=== PATIENT | male | born 1965 | race Caucasian/White ===

== ENCOUNTER 2020-02-15 22:08 | Emergency (ER) | payer BC, SELFPAY ==
[2020-02-15 22:10] VITALS: BP 170/93; PULSE 88; RESP 15; TEMP 37; O2SAT 100
--- NOTE | 2020-02-15 22:34 | ED.ABDPAIN ---
HPI - Abdominal Pain General Chief Complaint: Abdominal Pain Stated Complaint: pain in side/abd Time Seen by Provider: 02/15/20 22:34 History of Present Illness HPI narrative: 54-year-old male patient is here with chief complaints of left lower abdominal pain. Patient states that he did some heavy lifting a few days ago and then this morning when he woke up he felt a pulling type of sensation in the left lower abdomen. He denies any associated nausea vomiting or diarrhea. He denies any change in his appetite. He denies any fever or chills. Patient denies any urinary symptoms. Patient states that he is concerned about a hernia although he has no pain or swelling noted to the groin or testicles or the umbilical area. Patient denies any prior medical problems and states that he is not on any routine medications. Related Data Home Medications Medication Instructions Recorded Confirmed No Home Medications 02/15/20 02/15/20 Allergies Allergy/AdvReac Type Severity Reaction Status Date / Time No Known Allergies Allergy Verified 02/15/20 22:19 Review of Systems Review of Systems: All systems reviewed & are unremarkable except as noted in HPI and below PMFSH Past Medical History Medical History (Updated 02/15/20 @ 23:30 by Johana James MD) No pertinent past medical history Surgical History Surgical History No pertinent past surgical history Social History Social History (Updated 02/15/20 @ 23:25 by Johana James MD) Smoking status: Current every day smoker Exam Const: General: healthy appearing, no acute distress and alert Nutritional Appearance: well nourished Orientation/consciousness: patient oriented x3 HENMT: Head: normal to inspection Face and sinus: normal facial exam Mouth: Yes moist mucous membranes Eyes: Conjunctivae: conjunctivae normal Pupils: Equal, round and reactive pupils present EOM: EOMs intact bilaterally Neck: Neck: normal visual inspection Chest: Chest palpation & inspection: normal inspection of the chest and no tenderness Resp: Effort & Inspection: normal respiratory effort Auscultation: clear to auscultation bilaterally Cardio: Rate: regular rate Rhythm: regular rhythm Heart sounds: no murmurs GI: GI Palp: Yes Soft to palpation, Yes Tenderness to palpation present (GI) (Minimal tenderness LLQ, mostly extra abdominal ), No Guarding due to palpation present (GI), No Rigid due to palpation, No Hernia present, No Palpable mass present and No Rebound tenderness present Auscultation: normal bowel sounds : General: Yes no CVA tenderness Testes: Testes normal Back/Spine/Pelvis: Back: no CVA tenderness Skin: General skin exam: normal color Rashes: no rashes Neuro: General: patient oriented x3, moves all extremities and CN's II-XI intact bilaterally Speech: normal speech Gait exam (Neuro): Normal gait present Extrem: General: normal to inspection Psych: Mental Status: mental status grossly normal Thought content: Yes Normal thought content present Course Course Emergency Course: The patient is aware of normal labs and urinalysis. He has been given pain control with ketorolac 60 mg intramuscularly. He is advised to follow-up with his primary care physician. He has been reassured about the diagnosis of muscular pain in his abdominal wall. Vital Signs Vital signs: Vital Signs Temperature 37.0 C 02/15/20 22:10 Pulse Rate 88 02/15/20 22:10 Respiratory Rate 15 02/15/20 22:10 Blood Pressure 170/93 H 02/15/20 22:10 Pulse Oximetry 100 02/15/20 22:10 Temperature 37.0 C 02/15/20 22:10 Pulse Rate 88 02/15/20 22:10 Respiratory Rate 15 02/15/20 22:10 Blood Pressure 170/93 H 02/15/20 22:10 Pulse Oximetry 100 02/15/20 22:10 MDM - Abdominal Pain Lab Data Result diagrams: 02/15/20 22:31 02/15/20 22:31 Labs: Lab Results 02/15/20 02/15/20 02/15/20 R
[2020-02-15 22:36] LABS: Basophils Absolute Auto 0.04 K/mm3 (0.00-0.10); Basophils Percent Auto 0.9 % (0.0-1.0); Eosinophils Absolute Auto 0.18 K/mm3 (0.02-0.50); Eosinophils Percent Auto 3.9 % (1.0-6.0); Hematocrit 39.1 % (40.0-54.0); Hemoglobin 13.2 g/dL (14.0-18.0); Immature Granulocyte Absolute 0.01 K/mm3 (0.00-0.00); Immature Granulocyte Percent A 0.2 % (0.0-0.0); Lymphocytes Absolute Auto 1.22 K/mm3 (1.10-4.50); Lymphocytes Percent Auto 26.5 % (18.0-42.0); Mean Corpuscular HGB Conc 33.8 g/dL (32.0-36.0); Mean Corpuscular Hemoglobin 31.4 pg (27.0-31.0); Mean Corpuscular Volume 92.9 fL (78.0-102.0); Mean Platelet Volume 8.7 fl (8.7-11.0); Monocytes Absolute Auto 0.44 K/mm3 (0.10-0.90); Monocytes Percent Auto 9.6 % (2.0-11.0); Neutrophils Absolute Auto 2.7 K/mm3 (1.7-7.2); Neutrophils Percent Auto 58.9 % (50.0-70.0); Platelet Count Result 264 K/mm3 (150-420); Red Blood Count 4.21 M/mm3 (4.70-6.10); Red Cell Distribution Width 12.7 % (11.6-14.4); White Blood Count 4.6 K/mm3 (4.8-10.8)
[2020-02-15 22:37] LABS: Add Urine Microscopic? NO; Appearance Urine Clear (Clear); Bilirubin Urine Negative (Negative); Blood Urine Negative (Negative); Color Urine Yellow (Yellow); Glucose Urine UA Negative (Negative); Ketones Urine Negative (Negative); Leukocyte Esterase Ur Negative LEU/UL (Negative); Nitrate Urine Negative (Negative); Protein Urine Negative (Negative); Specific Grav Ur 1.025 (1.010-1.020); Urobilinogen Urine 0.2 mg/dL (0.2-1.0)
[2020-02-15 22:53] LABS: Alanine Aminotransferase 24 U/L (16-63); Albumin Level 3.6 g/dL (3.4-5.0); Alkaline Phosphatase 91 U/L (46-116); Anion Gap 7 mmol/L (8-16); Aspartate Amino Transferase 22 U/L (15-37); Bilirubin,Total 0.2 mg/dL (0.00-1.00); Blood Urea Nitrogen 14 mg/dL (7-18); Calcium 8.2 mg/dL (8.5-10.1); Carbon Dioxide 27 mmol/L (21-32); Chloride 104 mmol/L (98-108); Estimated Glomerular Filt Rate > 60; Glucose 125 mg/dL (70-99); Lipase 144 U/L (73-393); Osmolality Calculated 287 mOsm/kg (285-295); Potassium 3.9 mmol/L (3.5-5.1); Sodium 138 mmol/L (136-145)
[2020-02-15] MEDS: KETOROLAC (*BKC) 60 MG/2 ML VIAL IM (23:20)
[2020-02-15 23:47] VITALS: BP 167/83; PULSE 79; RESP 20; O2SAT 98
== END 2020-02-15 23:49 | disposition home or self-care (01) ==
PROVIDERS: Emergency Provider Emergency Medicine
DX: R10.32 Left lower quadrant pain (principal)
CPT/HCPCS: 36415; 80053; 81003; 83690; 85025; 96372; 99283; J1885

== ENCOUNTER 2020-02-27 21:47 | Emergency (ER) | payer BC, SELFPAY ==
[2020-02-27 22:03] VITALS: BP 162/97; PULSE 77; RESP 16; TEMP 37.1; O2SAT 97
--- NOTE | 2020-02-27 22:10 | ED.SKABFB ---
HPI - Skin/Abscess/Foreign Bdy General Chief complaint: Skin/Abscess/Foreign Body Stated complaint: rash Source: patient History of Present Illness HPI narrative: this is a 55-year-old gentleman that presents with a rash and pain located in his left lower abdomen has some vesicular rash on erythematous base started a couple days ago and has gotten worse over last 24 hours with no fever chills no nausea vomiting no diarrhea constipation no shortness of breath no cough congestion. complaint: rash Onset (ago): day(s) Tetanus up to date: unsure Location: generalized ( Left lower abdomen) Severity: mild Severity scale (1-10): 4 Quality: burning and aching Pain Consistency: constant Relieving factors: none Exacerbating factors: none Associated symptoms: denies other symptoms Related Data Allergies Allergy/AdvReac Type Severity Reaction Status Date / Time No Known Allergies Allergy Verified 02/15/20 22:19 Review of Systems Review of Systems: All systems reviewed & are unremarkable except as noted in HPI and below PMFSH Past Medical History Medical History No pertinent past medical history Surgical History Surgical History No pertinent past surgical history Social History Social History Smoking status: Current every day smoker Exam Const: General: no acute distress and alert Orientation/consciousness: patient oriented x3 HENMT: Head: normal to inspection Eyes: Conjunctivae: conjunctivae normal Pupils: Equal, round and reactive pupils present EOM: EOMs intact bilaterally Neck: Neck: normal visual inspection, no lymphadenopathy and no meningeal signs Chest: Chest palpation & inspection: normal inspection of the chest Resp: Effort & Inspection: normal respiratory effort Auscultation: clear to auscultation bilaterally Cardio: Rate: regular rate Rhythm: regular rhythm GI: GI Palp: Yes Soft to palpation : Testes: Testes normal Back/Spine/Pelvis: Back: no CVA tenderness Skin: Other: A cluster of vesicles on erythematous base located in his left lower abdomen Course Course Emergency Course: administered dose of acyclovir, and 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 Vital Signs Vital signs: Vital Signs Temperature 37.1 C 02/27/20 22:03 Pulse Rate 77 02/27/20 22:03 Respiratory Rate 16 02/27/20 22:03 Blood Pressure 162/97 H 02/27/20 22:03 Pulse Oximetry 97 02/27/20 22:03 Temperature 37.1 C 02/27/20 22:03 Pulse Rate 77 02/27/20 22:03 Respiratory Rate 16 02/27/20 22:03 Blood Pressure 162/97 H 02/27/20 22:03 Pulse Oximetry 97 02/27/20 22:03 Critical Care Time Critical Care Time Critical Care Time: No Discharge Plan Discharge Clinical Impression: Herpes zoster Qualifiers: Herpes zoster complications: without complications Qualified Code(s): B02.9 - Zoster without complications Patient Disposition: Home, Self-Care Condition: Stable Instructions: Antibiotic Form, Shingles (ED) Additional Instructions: take medicine as prescribed, can use Motrin or Tylenol as needed for pain. Prescriptions: New acyclovir 800 mg tablet 800 mg PO TID 7 Days Qty: 21 RF: 0 Follow-up/Referrals: Luis Padilla MD [Primary Care Provider] - Time of Disposition: 22:15
[2020-02-27] MEDS: ACYCLOVIR 200 MG CAPSULE 400 MG PO (22:25)
== END 2020-02-27 22:35 | disposition home or self-care (01) ==
PROVIDERS: Emergency Provider Emergency Medicine; PCP Internal Medicine
DX: B02.9 Zoster without complications (principal)
CPT/HCPCS: 99283; A9270

== ENCOUNTER 2020-04-19 13:13 | Emergency (ER) | payer BC, SELFPAY ==
--- NOTE | ~2020-04-19 | XR_ITS ---
EXAMINATION: XR ribs RT 2V EXAM DATE: 04/19/2020 14:23 INDICATION: Right lower rib pain posteriorly. TECHNIQUE: Frontal projection of the upper right ribs, frontal projection of the lower right ribs, ob lique projection of the right ribs, without chest x-ray(s) for interpretation. Correlation is made to Chest x-ray 05/01/2012 FINDINGS: There are no displaced acute right rib fractures identified. There are no osteoblastic or osteolytic lesions identified. There is no soft tissue abnormality seen. Thoracolumbar fusion poste riorly. IMPRESSION: Unremarkable right rib exam. Reviewed, dictated and finalized at location A. ON PICTURE ACTOR
--- NOTE | 2020-04-19 13:27 | ED.GENADULT ---
HPI - General Adult General Chief complaint: Back Pain/Injury Stated complaint: rib pain and comes around to back Time Seen by Provider: 04/19/20 13:28 Source: patient and RN notes reviewed Mode of arrival: ambulatory Limitations: no limitations History of Present Illness HPI narrative: patient has a history of shingles last month. This morning woke up with severe pain in his right ribs. No injury that he recalls. Hurts when he takes a deep breath. Also hurts when he touches it Or moves the wrong way. complaint: Right rib pain Onset (ago): hour(s) (6) Location: chest Radiation: non-radiation Severity: severe Quality: aching, dull and constant Pain Consistency: intermittent Relieving factors: none Exacerbating factors: movement Associated symptoms: denies other symptoms Treatments prior to arrival: none Related Data Allergies Allergy/AdvReac Type Severity Reaction Status Date / Time No Known Allergies Allergy Verified 02/15/20 22:19 Review of Systems Review of Systems: All systems reviewed & are unremarkable except as noted in HPI and below PMFSH Past Medical History Medical History No pertinent past medical history Surgical History Surgical History No pertinent past surgical history Social History Social History Smoking status: Current every day smoker Exam Const: General: healthy appearing and no acute distress Nutritional Appearance: well nourished and thin Orientation/consciousness: patient oriented x3 HENMT: Head: normal to inspection Ears: external ears normal Eyes: Conjunctivae: conjunctivae normal Pupils: Equal, round and reactive pupils present EOM: EOMs intact bilaterally Neck: Neck: normal visual inspection Chest: Chest palpation & inspection: tenderness costal cartilage posterior-axillary line involving the 7th-8th rib, involving the 8th-9th rib, involving the 9th-10th rib and involving the 10th-11th rib Resp: Effort & Inspection: normal respiratory effort Auscultation: clear to auscultation bilaterally Other: pain with deep breaths Cardio: Rate: regular rate Rhythm: regular rhythm GI: GI Palp: Yes Soft to palpation Auscultation: normal bowel sounds Back/Spine/Pelvis: Cervical Spine: cervical ROM normal Thoracic/Lumbar Spine: thoraco-lumbar ROM normal Skin: General skin exam: normal color Rashes: no rashes Neuro: General: patient oriented x3, moves all extremities and no focal motor deficits Speech: normal speech Gait exam (Neuro): Normal gait present Extrem: General: normal to inspection and no clubbing, cyanosis or edema Psych: Appearance: grossly normal and well kempt Mental Status: mental status grossly normal Affect: normal affect Attitude: cooperative Thought content: Yes Normal thought content present Course Vital Signs Vital signs: Vital Signs Temperature 36.9 C 04/19/20 13:35 Pulse Rate 84 04/19/20 13:35 Respiratory Rate 16 04/19/20 13:35 Blood Pressure 145/90 H 04/19/20 13:35 Pulse Oximetry 95 04/19/20 13:35 Temperature 36.9 C 04/19/20 13:35 Pulse Rate 84 04/19/20 13:35 Respiratory Rate 16 04/19/20 13:35 Blood Pressure 145/90 H 04/19/20 13:35 Pulse Oximetry 95 04/19/20 13:35 Medical Decision Making Vital Signs Vital Signs: Vital Signs Temperature 36.9 C 04/19/20 13:35 Pulse Rate 84 04/19/20 13:35 Respiratory Rate 16 04/19/20 13:35 Blood Pressure 145/90 H 04/19/20 13:35 Pulse Oximetry 95 04/19/20 13:35 Temperature 36.9 C 04/19/20 13:35 Pulse Rate 84 04/19/20 13:35 Respiratory Rate 16 04/19/20 13:35 Blood Pressure 145/90 H 04/19/20 13:35 Pulse Oximetry 95 04/19/20 13:35 Discharge Plan Discharge Clinical Impression: Rib sprain Qualifiers: Encounter type: initial encounter Qualified Code(s): S23.41XA - Sprain
[2020-04-19 13:35] VITALS: BP 145/90; PULSE 84; RESP 16; TEMP 36.9; O2SAT 95
[2020-04-19] MEDS: KETOROLAC (*BKC) 60 MG/2 ML VIAL IM (14:10)
== END 2020-04-19 14:55 | disposition home or self-care (01) ==
PROVIDERS: Emergency Provider Emergency Medicine
DX: S23.41XA Sprain of ribs, initial encounter (principal)
CPT/HCPCS: 71100; 96372; 99283; J1885

== ENCOUNTER 2021-02-23 10:55 | Emergency (ER) | payer BC, SELFPAY ==
[2021-02-23 11:19] VITALS: BP 147/100; PULSE 86; RESP 19; TEMP 36.4; O2SAT 95
--- NOTE | 2021-02-23 11:30 | ED.BACK ---
HPI - Back Pain/Injury General Chief Complaint: Back Pain/Injury Stated Complaint: Lower back pain for last 3 days Source: patient Mode of arrival: ambulatory Limitations: no limitations History of Present Illness HPI Narrative: this is a 56-year-old gentleman that presents with a right lower back pain has chronic back pain and strained his back with some heavy lifting causing aching and spasm in the right L4 paravertebral area with no radiation of his pain no saddle paresthesias no fever chills, rates his pain about 8/10 worse with movement and improved with rest. MD elicited complaint: back pain Pertinent past history: prior back pain Onset (ago): day(s) Timing: constant Severity: moderate Pain scale (0-10): 8 Quality: aching and spasming Location: lumbar spine Exacerbating factors: movement Relieving factors: immobilization Related Data Allergies Allergy/AdvReac Type Severity Reaction Status Date / Time No Known Allergies Allergy Verified 02/23/21 11:18 Review of Systems Review of Systems: All systems reviewed & are unremarkable except as noted in HPI and below PMFSH Past Medical History Medical History No pertinent past medical history Surgical History Surgical History No pertinent past surgical history Social History Social History Smoking status: Current every day smoker Exam Const: General: no acute distress and alert Orientation/consciousness: patient oriented x3 HENMT: Head: normal to inspection Eyes: Conjunctivae: conjunctivae normal Pupils: Equal, round and reactive pupils present Chest: Chest palpation & inspection: normal inspection of the chest Resp: Effort & Inspection: normal respiratory effort Auscultation: clear to auscultation bilaterally Cardio: Rate: regular rate Rhythm: regular rhythm GI: Inspection: distended : Testes: Testes normal Urinary Catheter: Urinary Catheter: patent and draining Back/Spine/Pelvis: Back: no CVA tenderness Skin: General skin exam: normal color Rashes: no rashes Neuro: Other: L4 right paravertebral tenderness with palpation with a negative straight leg raising test Extrem: General: normal to inspection and no pedal edema Psych: Mental Status: mental status grossly normal Course Course Emergency Course: patient received IM Toradol and IM muscle relaxant Vital Signs Vital signs: Vital Signs Temperature 36.4 C L 02/23/21 11:19 Pulse Rate 86 02/23/21 11:19 Respiratory Rate 19 02/23/21 11:19 Blood Pressure 147/100 H 02/23/21 11:19 Pulse Oximetry 95 02/23/21 11:19 Temperature 36.4 C L 02/23/21 11:19 Pulse Rate 86 02/23/21 11:19 Respiratory Rate 19 02/23/21 11:19 Blood Pressure 147/100 H 02/23/21 11:19 Pulse Oximetry 95 02/23/21 11:19 Critical Care Time Critical Care Time Critical Care Time: No Discharge Plan Discharge Clinical Impression: Strain of lumbar region Qualifiers: Encounter type: initial encounter Qualified Code(s): S39.012A - Strain of muscle, fascia and tendon of lower back, initial encounter Patient Disposition: Home, Self-Care Condition: Stable Instructions: Antibiotic Form, Acute Low Back Pain (ED) Additional Instructions: take medicine as prescribed follow-up primary care physician if symptoms persist or worsen. Prescriptions: New tramadol [Ultram] 50 mg tablet 50 mg PO Q6H PRN (Reason: pain) Qty: 14 RF: 0 cyclobenzaprine 10 mg tablet 10 mg PO TID Qty: 20 RF: 0 Follow-up/Referrals: Luis Padilla MD [Primary Care Provider] - Time of Disposition: 11:34
[2021-02-23] MEDS: KETOROLAC (*BKC) 60 MG/2 ML VIAL IM (11:33)
[2021-02-23] MEDS: ORPHENADRINE CITRATE 100 MG TABLET.ER PO (11:35)
[2021-02-23 12:25] VITALS: BP 142/94; PULSE 79; RESP 18; O2SAT 98
== END 2021-02-23 12:27 | disposition home or self-care (01) ==
PROVIDERS: Emergency Provider Emergency Medicine; PCP Internal Medicine
DX: S39.012A Strain of muscle, fascia and tendon of lower back, initial encounter (principal); X50.0XXA Overexertion from strenuous movement or load, initial encounter
CPT/HCPCS: 96372; 99283; A9270; J1885

== ENCOUNTER 2022-05-05 12:51 | Emergency (ER) | payer OTHER, SELFPAY ==
--- NOTE | ~2022-05-05 | XR_ITS ---
EXAMINATION: XR chest 1V portable INDICATION: Weakness TECHNIQUE: Portable AP chest at 1337 hours COMPARISON: 04/19/2020 FINDINGS: The lungs are free of acute opacities. No pleural effusion or pneumothorax. The cardiomedia stinal silhouette is normal. There are partially imaged surgical changes of the thoracolumbar spine. IMPRESSION: 1. No acute cardiopulmonary abnormality. Reviewed, dictated and finalized at location A. H DESIZING RANGE TENDER
[2022-05-05 12:51] VITALS: BP 127/89; PULSE 94; RESP 16; TEMP 36.4; O2SAT 95
[2022-05-05 12:55] VITALS: BP 127/89; PULSE 94; RESP 16; TEMP 36.4; O2SAT 96
--- NOTE | 2022-05-05 13:04 | ED.URI ---
HPI - URI/Sore Throat General Chief Complaint: Weakness Stated Complaint: weak\ cough Time Seen by Provider: 05/05/22 12:53 Source: patient Mode of arrival: ambulatory History of Present Illness HPI Narrative: 57-year-old male, smoker with chronic low back pain status post back surgery presents to the ER with a 1 day history of -- weakness -- cough which is productive of mucoid sputum -- dizziness or lightheadedness -- nasal congestion MD elicited complaint: cough and nasal congestion Onset (ago): day(s) ( started 1 day ago) Consistency: constant Able to tolerate fluids by mouth: Yes Exacerbating factors: nothing Relieving factors: nothing Associated symptoms: headache, rhinorrhea and nasal congestion Treatments prior to arrival: none Related Data Allergies Allergy/AdvReac Type Severity Reaction Status Date / Time No Known Allergies Allergy Verified 05/05/22 13:01 Review of Systems Review of Systems: All systems reviewed & are unremarkable except as noted in HPI and below Constitutional: Constitutional: Reports as per HPI, Reports no additional constitutional complaints, Reports anorexia, Reports fatigue, Reports headache(s), Reports lethargy and Reports weakness Eyes: Eyes: Reports as per HPI and Reports no additional eye complaints ENT: Reports system reviewed and no additional complaints, except as documented, Reports as per HPI and Reports nasal congestion Cardiovascular: Cardiovascular: Reports as per HPI and Reports no additional cardiovascular complaints Respiratory: Respiratory: Reports as per HPI and Reports no additional respiratory complaints Gastrointestinal: Gastrointestinal: Reports as per HPI and Reports no additional gastrointestinal complaints Genitourinary: Genitourinary: Reports no additional male genitourinary complaints and Reports as per HPI Musculoskeletal: Musculoskeletal: Reports no additional musculoskeletal complaints and Reports as per HPI Integumentary/Breasts: Skin/Breast: Reports system reviewed and no additional complaints, except as docu and Reports as per HPI Neurologic: Reports system reviewed and no additional complaints, except as documented and Reports as per HPI Psychiatric: Psychiatric: Reports no additional psychiatric complaints and Reports as per HPI Endocrine: Endocrine: Reports no additional endocrine complaints and Reports as per HPI Hematologic/Lymphatic: Hematologic/Lymphatic: Reports no additional hematologic/lymphatic complaints and Reports as per HPI Allergic/Immunologic: Allergic/Immunologic: Reports no additional allergic/immunologic complaints and Reports as per HPI [facility] Past Medical History Medical History No pertinent past medical history Surgical History Surgical History No pertinent past surgical history Social History Social History Smoking status: Current every day smoker Exam Const: General: cooperative, ill appearing and malnourished Nutritional Appearance: malnourished Orientation/consciousness: oriented to person, oriented to place and oriented to time Limitations: no limitations and altered mental status HENMT: Head: normal to inspection, No palpable skull fracture present and normocephalic Ears: hearing grossly normal bilaterally and external ears normal Face/Nose/Sinus: Normal external nose present and Normal nares present Face and sinus: normal facial exam Mouth: Yes Normal oral and palatal mucosa present Throat: posterior oropharynx normal Eyes: General: appearance normal, both eyes and all related structures Neck: Neck: normal visual inspection Chest: Chest palpation & inspection: normal inspection of the chest Resp: Effort & Inspection: normal respiratory effort Auscultation: rhonchi and diminished lung sounds Cardio: Jugular venous distension: no JVD
[2022-05-05] MEDS: IPRATROPIUM 0.5 MG/ALBUTEROL SULFATE 2.5 MG AMPUL.NEB 3 ML INHALATION (13:26)
[2022-05-05 13:29] VITALS: PULSE 84; RESP 16; O2SAT 95
[2022-05-05 13:32] LABS: Basophils Absolute Auto 0.03 K/mm3 (0.00-0.10); Basophils Percent Auto 0.6 % (0.0-1.0); Eosinophils Absolute Auto 0.02 K/mm3 (0.02-0.50); Eosinophils Percent Auto 0.4 % (1.0-6.0); Hematocrit 45.2 % (40.0-54.0); Hemoglobin 15.4 g/dL (14.0-18.0); Immature Granulocyte Absolute 0.01 K/mm3 (0.00-0.00); Immature Granulocyte Percent A 0.2 % (0.0-0.0); Lymphocytes Absolute Auto 0.73 K/mm3 (1.10-4.50); Lymphocytes Percent Auto 13.5 % (18.0-42.0); Mean Corpuscular HGB Conc 34.1 g/dL (32.0-36.0); Mean Corpuscular Volume 91.1 fL (78.0-102.0); Mean Platelet Volume 8.9 fl (8.7-11.0); Monocytes Absolute Auto 0.47 K/mm3 (0.10-0.90); Monocytes Percent Auto 8.7 % (2.0-11.0); Neutrophils Absolute Auto 4.1 K/mm3 (1.7-7.2); Neutrophils Percent Auto 76.6 % (50.0-70.0); Platelet Count Result 234 K/mm3 (150-420); Red Blood Count 4.96 M/mm3 (4.70-6.10); Red Cell Distribution Width 13.1 % (11.6-14.4); White Blood Count 5.4 K/mm3 (4.8-10.8)
[2022-05-05 13:40] VITALS: PULSE 81; RESP 16; O2SAT 97
[2022-05-05 13:56] LABS: Alanine Aminotransferase 24 U/L (16-63); Albumin Level 3.4 g/dL (3.4-5.0); Alkaline Phosphatase 101 U/L (46-116); Anion Gap 8 mmol/L (8-16); Aspartate Amino Transferase 31 U/L (15-37); Bilirubin,Total 0.2 mg/dL (0.00-1.00); Blood Urea Nitrogen 21 mg/dL (7-18); Calcium 8.6 mg/dL (8.5-10.1); Carbon Dioxide 28 mmol/L (21-32); Chloride 98 mmol/L (98-108); Estimated CRCL calculation 44 ml/min; Estimated Glomerular Filt Rate 48; Glucose 133 mg/dL (70-99); Osmolality Calculated 283 mOsm/kg (285-295); Potassium 3.8 mmol/L (3.5-5.1); Sodium 134 mmol/L (136-145); Thyroid Stimulating Hormone 52.01 uIU/mL (0.36-3.74); Total Protein 7.7 g/dL (6.4-8.2); Troponin I 11.7 ng/L (0.00-60.4)
[2022-05-05 14:06] LABS: Influenza A QL RT-PCR Positive (Negative); Influenza B QL RT-PCR Negative (Negative); SARS-CoV-2 RNA PCR Negative (Negative)
[2022-05-05] MEDS: LACTATED RINGERS 1,000 ML 999 ML IV CONT (14:50)
[2022-05-05 15:00] VITALS: BP 131/70; PULSE 88; RESP 16; TEMP 36.6; O2SAT 95
[2022-05-05 15:00] LABS: Free T4 Free Thyroxine 0.59 ng/dL (0.76-1.46)
== END 2022-05-05 15:42 | disposition home or self-care (01) ==
PROVIDERS: Emergency Provider Internal Medicine Critical Care Medicine
DX: J10.1 Influenza due to other identified influenza virus with other respiratory manifestations (principal); N17.9 Acute kidney failure, unspecified; E86.0 Dehydration; F17.200 Nicotine dependence, unspecified, uncomplicated; Z20.822 Contact with and (suspected) exposure to COVID-19
CPT/HCPCS: 36415; 71045; 80053; 84439; 84443; 84484; 85025; 87636; 94640; 96360; 99284; A9270; J7120

== ENCOUNTER 2023-06-25 04:11 | Emergency (ER) | payer OTHER, BC, SELFPAY ==
[2023-06-25] VITALS (29 sets, daily range): BP systolic 129–166; BP diastolic 64–112; PULSE 71–92; RESP 10–20; TEMP 35.5–36.4; O2SAT 94–100
--- NOTE | ~2023-06-25 | CT_ITS ---
EXAMINATION: CT brain wo con DATE: 06/25/2023 05:05 INDICATION: Headache. TECHNIQUE: Computed tomography (CT) of the head was performed without intravenous contrast. The mA wa s adjusted according to patient size. Iterative reconstruction technique was employed. The dose-lengt h product was 832.33 mGy-cm. COMPARISON: None FINDINGS: There are scattered areas of low attenuation in the cerebral white matter. There is an acut e intracranial hemorrhage with surrounding vasogenic edema involving right occipital lobe with extens ion into right lateral ventricle. There is no acute ischemic infarct or abnormal mass lesion. The radames tricles are not dilated. There is mild mucosal thickening in the ethmoid sinuses. The mastoid air ewa ls are normal. The orbits are normal. IMPRESSION: 1. Acute intraparenchymal hemorrhage involving right occipital lobe with extension into right lateral ventricle. Dr. Nicolas was called at 5:13 AM. 2. Extensive nonspecific cerebral white matter disease, which likely represents chronic small vessel ischemic disease. Reviewed, dictated and finalized at location A. N CREW IMPRESSION: 1. Acute intraparenchymal hemorrhage involving right occipital lobe with extens ion into right lateral ventricle. Dr. Nicolas was called at 5:13 AM. 2. Extensive nonspecific cerebral white matter disease, which likely represents chronic small vessel ischemic disease.
--- NOTE | ~2023-06-25 | XR_ITS ---
EXAMINATION: XR chest 1V portable DATE: 06/25/2023 05:05 INDICATION: Headache. Vomiting. TECHNIQUE: A single frontal view of the chest was obtained. COMPARISON: Chest single view 05/05/2022, chest CT 02/05/2013 FINDINGS: There is no pneumonia, pleural effusion, or pneumothorax. The heart size is normal. Calcifi ed hilar lymph nodes are consistent with old granulomatous disease. There are fixation rods in the lev mbar spine. IMPRESSION: 1. No acute cardiopulmonary disease. Reviewed, dictated and finalized at location A. 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
--- NOTE | 2023-06-25 04:20 | ED.NAVMDI ---
HPI - Nausea/Vomiting/Diarrhea General Chief complaint: Nausea/Vomiting/Diarrhea Stated complaint: vomitig Source: patient and family History of Present Illness HPI Narrative: 58 years old white male came to the emergency room by private car with his daughter who is telling us that patient been having nausea and vomiting over the last 24 hours, associated with right-sided headache. She reported that the patient have headache for the last 2 weeks. Few hours ago the headache got worse and considered the worst headache in his life. Patient denies any fever or chills or abdominal pain or diarrhea or chest pain or shortness of breath. The daughter is telling me that his mom from cerebral aneurysm April 2023 and his son schedule for cerebral aneurysm surgery on the 12 of this month. History of COPD, tobacco dependence, smokes marijuana almost daily. Related Data Home Medications Medication Instructions Recorded Confirmed No Home Medications 06/25/23 06/25/23 Allergies Allergy/AdvReac Type Severity Reaction Status Date / Time No Known Allergies Allergy Verified 06/25/23 04:24 Review of Systems Review of Systems: All systems reviewed & are unremarkable except as noted in HPI and below PMFSH Past Medical History Medical History No pertinent past medical history Surgical History Surgical History No pertinent past surgical history Social History Social History Smoking status: Current every day smoker Exam Narrative: General appearance: Well-developed, well-nourished Unable to answer question because of the headache. Skin: Normal color Head: Normocephalic, nontraumatic Eyes: Clear conjunctiva ENT: Oropharynx normal, ears normal, nose normal Neck: Supple, nontender Chest and respiratory: Airway patent, no respiratory distress, no accessory muscle use Heart: Regular rate/rhythm Abdomen: Soft, nontender, no organomegaly, quiet bowel sounds Neurologic: Alert and oriented ?3, Unable to evaluate patient neurologically, because of the severity of the headache patient does not follow commands Course Consultations Consultation #1: DR RIDDLE, NEUROSURGEON ON-CALL, REQUESTED TO GET PATIENT 1 G OF KEPPRA IV Date: 06/25/23 Time: 05:51 Vital Signs Vital signs: Vital Signs Temperature 35.5 C L 02/06/24 04:11 Pulse Rate 88 06/25/23 04:11 Respiratory Rate 14 06/25/23 04:11 Blood Pressure 145/112 H 06/25/23 04:11 Pulse Oximetry 99 06/25/23 04:11 Oxygen Delivery Room Air 06/25/23 04:11 Temperature 35.5 C L 06/25/23 04:11 Pulse Rate 77 06/25/23 04:31 Respiratory Rate 11 L 06/25/23 04:31 Blood Pressure 166/94 H 06/25/23 04:31 Pulse Oximetry 100 06/25/23 04:15 Oxygen Delivery Room Air 06/25/23 04:11 MDM - Nausea/Vomiting/Diarrhea MDM Narrative Medical decision making narrative: patient came by private car with his daughter complaining of progressive headache over the last 2 weeks got worse over the last few hours prior to arrival to the emergency room. Patient reported this is the worst headache in his life. Associated with nausea and frequent vomiting. Patient's mom and his son had history of cerebral aneurysm. Vital signs showing blood pressure of 145/112, Physical examination was limited because patient does not follow commands because of the severity of headache. His daughter was the 1 providing the complains and history. Differential diagnosis intracranial bleed, cerebral aneurysm, stress related symptoms, marijuana
--- NOTE | 2023-06-25 04:29 | ECG_ITS ---
Measurements Intervals [place] Rate: 76 P: 78 SD: 142 QRS: 69 QRSD: 93 T: 73 QT: 373 QTc: 422 Interpretive Statements SINUS RHYTHM POSSIBLE RIGHT VENTRICULAR CONDUCTION DELAY [RSR (QR) IN V1/V2] MODERATE VOLTAGE CRITERIA FOR LVH, CONSIDER NORMAL VARIANT [MEETS CRITERIA IN ONE OF: R(aVL), S(V1), R(V5), R(V5/V6)+S(V1)] NO PREVIOUS ECG AVAILABLE FOR COMPARISON Electronically Signed On 06-25-2023 8:38:31 CLAIM ADJUSTER by Eriberto Rios M.D.
[2023-06-25] MEDS: SODIUM CHLORIDE 0.9% IV 1,000 ML 999 ML IV CONT ×2 (04:41→04:46)
[2023-06-25] MEDS: METOCLOPRAMIDE HCL INJ 10 MG/2 ML VIAL IV PUSH (04:41)
[2023-06-25] MEDS: diphenhydrAMINE HCl INJ 50 MG/ML VIAL IV PUSH (04:42)
--- NOTE | 2023-06-25 04:47 | PC.NURSE ---
PATIENT MEDICATED, SEE JUL. TO IMAGING VIA STRETCHER PER TEMPERATURE INSPECTOR.
[2023-06-25 05:23] LABS: SARS-CoV-2 RNA PCR Negative (Negative)
[2023-06-25 05:24] LABS: Influenza A QL RT-PCR Negative (Negative); Influenza B QL RT-PCR Negative (Negative); RSV RNA, RT-PCR Negative (Negative)
[2023-06-25 05:34] LABS: Basophils Absolute Auto 0.04 K/mm3 (0.00-0.10); Basophils Percent Auto 0.5 % (0.0-1.0); Eosinophils Absolute Auto 0.07 K/mm3 (0.02-0.50); Eosinophils Percent Auto 0.8 % (1.0-6.0); Hemoglobin 13.7 g/dL (14.0-18.0); Immature Granulocyte Absolute 0.03 K/mm3 (0.00-0.00); Immature Granulocyte Percent A 0.4 % (0.0-0.0); Lymphocytes Absolute Auto 0.67 K/mm3 (1.10-4.50); Mean Corpuscular HGB Conc 32.6 g/dL (32.0-36.0); Mean Corpuscular Hemoglobin 29.7 pg (27.0-31.0); Mean Corpuscular Volume 90.9 fL (78.0-102.0); Mean Platelet Volume 9.3 fl (8.7-11.0); Monocytes Absolute Auto 0.37 K/mm3 (0.10-0.90); Monocytes Percent Auto 4.4 % (2.0-11.0); Neutrophils Absolute Auto 7.2 K/mm3 (1.7-7.2); Neutrophils Percent Auto 85.9 % (50.0-70.0); Platelet Count Result 274 K/mm3 (150-420); Red Blood Count 4.62 M/mm3 (4.70-6.10); Red Cell Distribution Width 13.4 % (11.6-14.4); White Blood Count 8.4 K/mm3 (4.8-10.8)
[2023-06-25] MEDS: niCARdipine 20 MG/200 ML 20 MG/200 ML BAG 50 MG IV CONT (05:36)
[2023-06-25] MEDS: HYDROmorphone HCL INJ (*CRX) 2 MG/ML VIAL 0.5 MG IV PUSH (05:38)
[2023-06-25 05:49] LABS: INR 0.9; Partial Thromboplastin Time 25.5 SEC (23.90-30.70); Prothrombin Time 10.3 Seconds (9.50-12.10)
[2023-06-25 05:51] LABS: Alanine Aminotransferase 25 U/L (16-63); Albumin Level 3.6 g/dL (3.4-5.0); Alkaline Phosphatase 102 U/L (46-116); Anion Gap 7 mmol/L (8-16); Aspartate Amino Transferase 25 U/L (15-37); Bilirubin,Total 0.2 mg/dL (0.00-1.00); Blood Urea Nitrogen 16 mg/dL (7-18); Calcium 8.4 mg/dL (8.5-10.1); Carbon Dioxide 30 mmol/L (21-32); Chloride 103 mmol/L (98-108); Estimated CRCL calculation 55 ml/min; Estimated Glomerular Filt Rate > 60; Glucose 133 mg/dL (70-99); Osmolality Calculated 293 mOsm/kg (285-295); Potassium 3.8 mmol/L (3.5-5.1); Sodium 140 mmol/L (136-145); Total Protein 7.3 g/dL (6.4-8.2)
[2023-06-25] MEDS: levETIRAcetam 1000MG/NACL100ML 1,000 MG/100 ML BAG 400 MG IVPB (05:54)
[2023-06-25 05:57] LABS: Ethanol < 3 mg/dL (0-6)
--- NOTE | 2023-06-25 06:49 | PC.NURSE ---
PATIENT DAUGHTER SOFIA UPDATED PER RN. [phone]. SON AND NEPHEW AT BEDSIDE. PATIENT AWAITING TRANSFER.
== END 2023-06-25 07:01 | disposition short-term general hospital (02) ==
PROVIDERS: Emergency Provider Emergency Medicine; PCP Internal Medicine
DX: I62.9 Nontraumatic intracranial hemorrhage, unspecified (principal); J44.9 Chronic obstructive pulmonary disease, unspecified; F17.200 Nicotine dependence, unspecified, uncomplicated; Z20.822 Contact with and (suspected) exposure to COVID-19
CPT/HCPCS: 36415; 70450; 71045; 80053; 80307; 85025; 85610; 85730; 87637; 93005; 96361; 96365; 96366; 96375; 99285; J1170; J1200; J1953; J2404; J2765; J7030

== ENCOUNTER 2023-10-17 16:17 | Emergency (ER) | payer OTHER, SELFPAY ==
--- NOTE | ~2023-10-17 | XR_ITS ---
EXAM: XR ankle LT min 3V, XR foot LT min 3V DATE: 10/17/2023 16:51 HISTORY: foot and ankle pain . COMPARISON: None available. FINDINGS: Normal mineralization. No fracture or dislocation. No lytic or blastic lesion. Mild degene rative change at the first MTP joint and lateral sesamoid. Bipartite medial sesamoid bone. No erosion or periosteal change. Soft tissues within normal limits. IMPRESSION: No acute osseous finding in the left ankle or left foot. Reviewed, dictated and finalized at location K. IMPRESSION: No acute osseous finding in the left ankle or left foot.
[2023-10-17 16:17] VITALS: BP 145/91; PULSE 92; RESP 16; TEMP 36.6; O2SAT 99
[2023-10-17] MEDS: KETOROLAC (*BKC) 60 MG/2 ML VIAL IM (16:39)
--- NOTE | 2023-10-17 16:50 | ED.LOWEXIN ---
HPI - Extremity Injury (Lower) General Chief Complaint: Extremity Injury, Lower Stated Complaint: LEFT FOOT SWELLING Time Seen by Provider: 10/17/23 16:27 Source: patient Mode of arrival: ambulatory History of Present Illness HPI Narrative: this is a 58-year-old male who presents with a swollen tender left foot and ankle unsure of how he injured it but has good range of motion although tender with movement and palpation with some swelling in his left foot and ankle. No other injuries no fever chills. complaint: ankle injury and foot injury Onset (ago): day(s) Type of Injury: unknown Place: home Severity: moderate Severity scale (1-10): 6 Relieving factors: nothing Exacerbating factors: movement and palpation Related Data Home Medications Medication Instructions Recorded Confirmed amlodipine 10 mg tablet 10 mg PO DAILY 10/17/23 10/17/23 clonidine HCl 0.3 mg tablet 0.3 mg PO TID 10/17/23 10/17/23 Allergies Allergy/AdvReac Type Severity Reaction Status Date / Time No Known Allergies Allergy Verified 10/17/23 16:25 Review of Systems Review of Systems: All systems reviewed & are unremarkable except as noted in HPI and below PMFSH Past Medical History Medical History No pertinent past medical history Surgical History Surgical History No pertinent past surgical history Social History Social History Smoking status: Current every day smoker Exam Const: General: healthy appearing, no acute distress and alert Nutritional Appearance: well nourished Chest: Chest palpation & inspection: normal inspection of the chest Resp: Effort & Inspection: normal respiratory effort Auscultation: clear to auscultation bilaterally Cardio: Rate: regular rate Rhythm: regular rhythm GI: GI Palp: Yes Soft to palpation Auscultation: normal bowel sounds Skin: Wounds: no wounds Extrem: Other: Tender swollen pain with palpation Course Course Emergency Course: patient received a Toradol 60mg IM injection, x-rays performed Vital Signs Vital signs: Vital Signs Temperature 36.6 C 10/17/23 16:17 Pulse Rate 92 10/17/23 16:17 Respiratory Rate 16 10/17/23 16:17 Blood Pressure 145/91 H 10/17/23 16:17 Pulse Oximetry 99 10/17/23 16:17 Oxygen Delivery Room Air 10/17/23 16:17 Temperature 36.6 C 10/17/23 16:17 Pulse Rate 92 10/17/23 16:17 Respiratory Rate 16 10/17/23 16:17 Blood Pressure 145/91 H 10/17/23 16:17 Pulse Oximetry 99 10/17/23 16:17 Oxygen Delivery Room Air 10/17/23 16:17 Critical Care Time Critical Care Time Critical Care Time: No Discharge Plan Discharge Clinical Impression: Ankle sprain Patient Disposition: Home, Self-Care Condition: Stable Instructions: Antibiotic Form, Ankle Sprain (ED) Additional Instructions: advised to take medicine as prescribed and follow up with primary within 1 week for further evaluation and treatment. Prescriptions: New indomethacin 50 mg capsule 50 mg PO BID Qty: 14 0RF Rx Instructions: administer with food or milk No Action clonidine HCl 0.3 mg tablet 0.3 mg PO TID amlodipine 10 mg tablet 10 mg PO DAILY Follow-up/Referrals: Luis Padilla MD [Primary Care Provider] - Time of Disposition: 17:00
[2023-10-17 17:10] VITALS: BP 153/98; PULSE 79; RESP 17; TEMP 36.6; O2SAT 98
== END 2023-10-17 17:10 | disposition home or self-care (01) ==
LOC: CHSED 17:04
PROVIDERS: Emergency Provider Emergency Medicine; PCP Internal Medicine
DX: S93.402A Sprain of unspecified ligament of left ankle, initial encounter (principal); X58.XXXA Exposure to other specified factors, initial encounter; F17.200 Nicotine dependence, unspecified, uncomplicated
CPT/HCPCS: 73610; 73630; 96372; 99283; J1885

== ENCOUNTER 2023-10-20 19:12 | Emergency (ER) | payer OTHER, SELFPAY ==
[2023-10-20] VITALS (7 sets, daily range): BP systolic 127–147; BP diastolic 86–99; PULSE 81–92; RESP 11–18; TEMP 36.4; O2SAT 96–100
--- NOTE | ~2023-10-20 | CT_ITS ---
EXAMINATION: CT brain wo con DATE: 10/20/2023 19:38 INDICATION: Weakness. TECHNIQUE: Computed tomography (CT) of the head was performed without intravenous contrast. The mA wa s adjusted according to patient size. Iterative reconstruction technique was employed. The dose-lengt h product was 605.33 mGy-cm. COMPARISON: Head CT 06/25/2023 FINDINGS: There is chronic encephalomalacia in the right temporal parietal-occipital region and left occipital lobe. There are scattered areas of low attenuation in the cerebral white matter. There is n o intracranial hemorrhage, acute infarction, or abnormal intracranial mass lesion. The ventricles are normal in size. There is mild mucosal thickening in the paranasal sinuses. The orbits are normal. Th e mastoid air cells are normal. IMPRESSION: 1. Chronic encephalomalacia in right temporal parietal occipital region and left occipital lobe. 2. Extensive nonspecific cerebral white matter disease, which likely represents chronic small vessel ischemic disease. Reviewed, dictated and finalized at location E. IMPRESSION: 1. Chronic encephalomalacia in right temporal parietal occipital region and lef t occipital lobe. 2. Extensive nonspecific cerebral white matter disease, which likely represents chronic small vessel ischemic disease.
--- NOTE | ~2023-10-20 | XR_ITS ---
EXAMINATION: XR chest 2V DATE: 10/20/2023 19:38 INDICATION: Weakness. TECHNIQUE: Frontal and lateral views of the chest were obtained on 3 radiographs. COMPARISON: Chest single view 06/25/2023 FINDINGS: There is no pneumonia, pleural effusion, or pneumothorax. The heart size is normal. There i s a chronic compression fracture of L1 with posterior spinal instrumentation. IMPRESSION: 1. No acute cardiopulmonary disease. Reviewed, dictated and finalized at location E.
--- NOTE | 2023-10-20 19:14 | ECG_ITS ---
[address] Test Date: 2023-10-20 Pat Name: Dion Ellis Department: Room: Gender: M Rn Intensive Care Unit: : [id number] Requested By: Russ Guevara Order Number: [id number] Violette MD: Eriberto Rios M.D. Measurements Intervals [place] Rate: 74 P: 71 MT: 135 QRS: 61 QRSD: 94 T: 61 QT: 348 QTc: 387 Interpretive Statements SINUS RHYTHM MINIMAL VOLTAGE CRITERIA FOR LVH, CONSIDER NORMAL VARIANT [MEETS CRITERIA IN ONE OF: R(aVL), S(V1), R(V5), R(V5/V6)+S(V1)] INTERPRETATION BASED ON A DEFAULT AGE OF 40 YEARS No previous ECG available for comparison Electronically Signed On 10-22-2023 14:11:16 CDT by Eriberto Rios M.D.
--- NOTE | 2023-10-20 19:19 | ED.WEAKNESS ---
HPI - Weakness General Chief complaint: Weakness Stated complaint: weakness Time Seen by Provider: 10/20/23 19:14 Source: patient and EMS Mode of arrival: ambulatory Limitations: no limitations History of Present Illness HPI Narrative: patient is a 58-year-old male with generalized weakness. Patient was at home and started feeling not well and sat down. His called EMS. EMS found him to be hypotensive in the 70s systolic. He is brought to the ER for further evaluation. No pain. patient baseline has hypertension. MD Complaint: generalized weakness Onset (ago): hour(s) (1) Duration: intermittent Location: generalized Migration: none Severity: mild Severity scale (1-10): 2 Quality: other ( No pain) Relieving factors: none Exacerbating factors: none Context: other ( no other complaints) Associated symptoms: denies other symptoms Related Data Home Medications Medication Instructions Recorded Confirmed amlodipine 10 mg tablet 10 mg PO DAILY 10/17/23 10/20/23 clonidine HCl 0.3 mg tablet 0.3 mg PO TID 10/17/23 10/20/23 Allergies Allergy/AdvReac Type Severity Reaction Status Date / Time No Known Allergies Allergy Verified 10/17/23 16:25 Review of Systems Review of Systems: All systems reviewed & are unremarkable except as noted in HPI and below Constitutional: Constitutional: Reports no additional constitutional complaints Eyes: Eyes: Reports no additional eye complaints ENT: Reports system reviewed and no additional complaints, except as documented Cardiovascular: Cardiovascular: Reports no additional cardiovascular complaints Respiratory: Respiratory: Reports no additional respiratory complaints Gastrointestinal: Gastrointestinal: Reports no additional gastrointestinal complaints Genitourinary: Genitourinary: Reports no additional male genitourinary complaints Musculoskeletal: Musculoskeletal: Reports no additional musculoskeletal complaints Integumentary/Breasts: Skin/Breast: Reports system reviewed and no additional complaints, except as docu Neurologic: Reports system reviewed and no additional complaints, except as documented Psychiatric: Psychiatric: Reports no additional psychiatric complaints Endocrine: Endocrine: Reports no additional endocrine complaints Hematologic/Lymphatic: Hematologic/Lymphatic: Reports no additional hematologic/lymphatic complaints Allergic/Immunologic: Allergic/Immunologic: Reports no additional allergic/immunologic complaints PMFSH Past Medical History Medical History No pertinent past medical history Surgical History Surgical History No pertinent past surgical history Social History Social History Smoking status: Current every day smoker Exam Const: General: healthy appearing Nutritional Appearance: well nourished Orientation/consciousness: patient oriented x3 HENMT: Head: normal to inspection Ears: external ears normal Face/Nose/Sinus: Normal external nose present Eyes: Conjunctivae: conjunctivae normal Pupils: Equal, round and reactive pupils present EOM: EOMs intact bilaterally Neck: Neck: normal visual inspection Chest: Chest palpation & inspection: normal inspection of the chest Resp: Effort & Inspection: normal respiratory effort and not labored Auscultation: clear to auscultation bilaterally Cardio: Rate: regular rate Rhythm: regular rhythm Heart sounds: no murmurs GI: Inspection: non-distended GI Palp: Yes Soft to palpation and No Tenderness to palpation present (GI) Auscultation: normal bowel sounds : General: Yes bladder normal to palpation Back/Spine/Pelvis: Back: no CVA tenderness Skin: General skin exam: normal color Rashes: no rashes Wounds: no wounds Neuro: General: patient oriented x3 Cranial nerves: Yes Nystagmus not present Speech: norm
--- NOTE | 2023-10-20 19:30 | PC.NURSE ---
patient transported to xray via stretcher
--- NOTE | 2023-10-20 19:40 | PC.NURSE ---
returned from xray
[2023-10-20] MEDS: SODIUM CHLORIDE 0.9% IV 1,000 ML 999 ML IV CONT (19:49)
--- NOTE | 2023-10-20 19:55 | PC.NURSE ---
lab has been notified that orders have been placed.
--- NOTE | 2023-10-20 20:14 | PC.NURSE ---
waiting on lab to draw blood. lab has been notified. waiting on to arrived. patient denies any needs at this time. call light in reach.
--- NOTE | 2023-10-20 20:25 | PC.NURSE ---
lab at the bedside
[2023-10-20 20:40] LABS: Basophils Absolute Auto 0.05 K/mm3 (0.00-0.10); Basophils Percent Auto 0.6 % (0.0-1.0); Eosinophils Absolute Auto 0.09 K/mm3 (0.02-0.50); Eosinophils Percent Auto 1.1 % (1.0-6.0); Hematocrit 40.5 % (40.0-54.0); Hemoglobin 13.1 g/dL (14.0-18.0); Immature Granulocyte Absolute 0.03 K/mm3 (0.00-0.00); Immature Granulocyte Percent A 0.4 % (0.0-0.0); Lymphocytes Absolute Auto 0.93 K/mm3 (1.10-4.50); Lymphocytes Percent Auto 11.3 % (18.0-42.0); Mean Corpuscular HGB Conc 32.3 g/dL (32-36); Mean Corpuscular Hemoglobin 29.8 pg (27.0-31.0); Mean Corpuscular Volume 92.3 fL (78.0-102.0); Monocytes Absolute Auto 0.53 K/mm3 (0.10-0.90); Monocytes Percent Auto 6.4 % (2.0-11.0); Neutrophils Absolute Auto 6.61 K/mm3 (1.70-7.20); Neutrophils Percent Auto 80.2 % (50.0-70.0); Platelet Count Result 307 K/mm3 (150-420); Red Blood Count 4.39 M/mm3 (4.70-6.10); Red Cell Distribution Width 14.2 % (11.6-14.4); White Blood Count 8.2 K/mm3 (4.8-10.8)
[2023-10-20 21:14] LABS: Alanine Aminotransferase 21 U/L (16-63); Albumin Level 3.4 g/dL (3.4-5.0); Alkaline Phosphatase 97 U/L (46-116); Anion Gap 9 mmol/L (4-12); Aspartate Amino Transferase 21 U/L (15-37); Bilirubin,Total 0.2 mg/dL (0.00-1.00); Blood Urea Nitrogen 13 mg/dL (7-18); Calcium 8.7 mg/dL (8.5-10.1); Carbon Dioxide 29 mmol/L (21-32); Chloride 105 mmol/L (98-108); Estimated CRCL calculation 90 ml/min; Estimated Glomerular Filt Rate > 60; Ethanol 3 mg/dL (0-6); Glucose 101 mg/dL (70-99); Osmolality Calculated 296 mOsm/kg (285-295); Potassium 3.7 mmol/L (3.5-5.1); Sodium 143 mmol/L (136-145); Total Protein 7.3 g/dL (6.4-8.2); Troponin I 6.1 ng/L (0.00-60.4)
== END 2023-10-20 21:26 | disposition home or self-care (01) ==
PROVIDERS: Emergency Provider Emergency Medicine
DX: R53.1 Weakness (principal); F17.200 Nicotine dependence, unspecified, uncomplicated
CPT/HCPCS: 36415; 70450; 71046; 80053; 80307; 84484; 85025; 93005; 96360; 99284; J7030

== ENCOUNTER 2024-05-31 08:14 | Emergency (ER) | payer SELFPAY ==
--- NOTE | ~2024-05-31 | XR_ITS ---
XR wrist RT min 3V DATE: 05/31/2024 08:40 INDICATION: Right wrist pain and swelling. No known injury. TECHNIQUE: 3 views COMPARISON: None FINDINGS: Mild triangular cartilage and wrist chondrocalcinosis. No recent fracture, dislocation, periosteal reaction or bone destruction or erosive changes noted. 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
[2024-05-31 08:15] VITALS: BP 144/100; PULSE 83; RESP 20; TEMP 36.7; O2SAT 100
--- NOTE | 2024-05-31 08:29 | ED_ITS ---
HPI - General Adult General Chief complaint: Extremity Injury, Upper Stated complaint: right wrist injury Source: patient Mode of arrival: ambulatory Limitations: no limitations History of Present Illness HPI narrative: 59-year-old white male complains of right wrist pain it has bothered him for some years off and on. No history of trauma using hurts for couple days he takes some ibuprofen and it goes away. Denies any other joint pain or pain. He is eating and drinking voiding and stooling fine without rashes other swelling lumps or bumps problems breathing problems walking talking seeing or hearing. Denies any other complaints. Related Data Allergies Allergy/AdvReac Type Severity Reaction Status Date / Time No Known Allergies Allergy Verified 03/06/24 10:09 Review of Systems 2 Review of Systems: All systems reviewed & are unremarkable except as noted in HPI and below PMFSH Past Medical History Medical History No pertinent past medical history Surgical History Surgical History No pertinent past surgical history Social History Social History Smoking status: Current every day smoker Alcohol intake: never Substance use: unknown Exam 2 Narrative: ?White male patient with Milddistress holding his right wrist..? Head normocephalic, atraumatic.? Eyes conjunctiva pink sclera nonicteric.? Extraocular movements are intact.? Ears externally normal.? Oropharynx is clear with moist mucous membranes without exudates.? Neck is supple nontender no lymphadenopathy.? Back is nontender.? Lungs are clear.? Heart is regular rate and rhythm without murmurs gallops or rubs.? Chest wall nontender. Abdomen is soft and nontender no hepatosplenomegaly or masses no CVA tenderness no abdominal bruits.? Extremities : Right wrist swelling over the radial aspect. Radial pulse +2. Decreased range of motion to all directions to his right wrist compared to the left. There is no no cyanosis or clubbing? Skin is warm and dry without rashes or lesions.? Neurological patient is alert and oriented x4.? Motor and sensory grossly intact.? Gait is normal. Course Vital Signs Vital signs: Vital Signs Temperature 36.7 C 05/31/24 08:15 Pulse Rate 83 05/31/24 08:15 Respiratory Rate 20 05/31/24 08:15 Blood Pressure 144/100 H 05/31/24 08:15 Pulse Oximetry 100 05/31/24 08:15 Oxygen Delivery Room Air 05/31/24 08:15 Temperature 36.4 C 05/31/24 10:27 Pulse Rate 72 05/31/24 10:27 Respiratory Rate 14 05/31/24 10:27 Blood Pressure 146/104 H 05/31/24 10:27 Pulse Oximetry 99 05/31/24 10:27 Oxygen Delivery Room Air 05/31/24 10:27 Medical Decision Making MDM Narrative Medical decision making narrative: ?Patient placed in room: 6 ? History and physical was performed. 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 Splint for comfort ibuprofen prednisone 40 daily for 5 days Social Situation Impacting Patients Care: no primary care Discussed with Dr. MCCRACKEN DIAGNOSIS: pseudogout wrist DISPOSITION : discharge CONDITION AT DISCHARGE: stable Vital Signs Vital Signs: Vital Signs Temperature 36.7 C 05/31/24 08:15 Pulse Rate 83 05/31/24 08:15 Respiratory Rate 20 05/31/24 08:15 Blood Pressure 144/100 H 05/31/24 08:15 Pulse Oximetry 100 05/31/24 08:15 Oxygen Delivery Room Air 05/31/24 08:15 Temperature 36.4 C 05/31/24 10:27 Pulse Rate 72 05/31/24 10:27 Respiratory Rate 14 05/31/24 10:27 Blood Pressure 146/104 H 05/31/24 10:27 Pulse Oximetry 99 05/31/24 10:27 Oxygen Delivery Room Air 05/31/24 10:27 Lab Data 05/31/24 09:03 05/31/24 09:03 Labs: Lab Results 05/31/24 Range/Units 09:03 WBC 8.9 (4.8-10.8) K/mm3 RBC 4.66 L (4.70-6.10) M/mm3 Hgb 13.8 L (14.0-18.0) g/dL Hct 42.4 (40.0-54.0) % MCV 91.0 (78.0-102.0) fL MCH 29.6 (27.0-31.0) pg MCHC 32.5 (32-36) g/dL RDW 13.8 (11.6-14.4) % Plt Count 276 (150-420) K/mm3 MPV 8.6 L (8.7-11.0) fl ESR 23 H (0-20) mm/hr Sodium 140 (136-145) mmol/L Potassium 3.8 (3.5-5.1) mmol/L Chloride 102 (98-108) mmol/L Carbon Dioxide 29 (21-32) mmol/L Anion Gap 9 (4-12) mmol/L BUN 13 (7-18) mg/dL Creatinine 1.16 (0.70-1.30) mg/dL Estim Creat Clear Calc 60 ml/min Estimated GFR > 60 (59 - ) Glucose 109 H (70-99) mg/dL Calculated Osmolality 291 (285-295) mOsm/kg Uric Acid 3.4 L (3.5-7.2) mg/dL Calcium 8.7 (8.5-10.1) mg/dL Total Bilirubin 0.2 (0.00-1.00) mg/dL AST 21 (15-37) U/L ALT 22 (16-63) U/L Alkaline Phosphatase 129 H (46-116) U/L C-Reactive Protein 0.7 (0.0-0.9) mg/dL Total Protein 6.9 (6.4-8.2) g/dL Albumin 3.3 L (3.4-5.0) g/dL Discharge Plan Discharge Clinical Impression: Pseudogout of right wrist Patient Disposition: Home, Self-Care Condition: Stable Instructions: Arthritis (ED) Additional Instructions: wrist splint for comfort only. Ibuprofen 600 mg 3 times a day with food. Prednisone 40 mg daily for 5 days. Follow-up with primary care provider from the list given. Return if you get worse or develops any new symptoms. Patient Language: Dominican Prescriptions: New prednisone 20 mg tablet 40 mg PO DAILY 5 Days Qty: 10 0RF No Action nicotine 14 mg/24 hr patch 24 hour 1 patch transdermal DAILY Qty: 28 0RF amlodipine 10 mg tablet 10 mg PO DAILY Qty: 90 3RF propranolol 20 mg tablet See Rx Instructions .ROUTE .COMPLEX Qty: 60 0RF Dose Instruction: TAKE 1 TABLET BY MOUTH EVERY 12 HOURS Rx Instructions: TAKE 1 TABLET BY MOUTH EVERY 12 HOURS albuterol sulfate 90 mcg/actuation HFA aerosol inhaler See Rx Instructions .ROUTE .COMPLEX Qty: 8.5 0RF Dose Instruction: INHALE 1 PUFF EVERY 4 HOURS NEEDED FOR SHORTNESS OF BREATH OR WHEEZING Rx Instructions: INHALE 1 PUFF EVERY 4 HOURS NEEDED FOR SHORTNESS OF BREATH OR WHEEZING Follow-up/Referrals: UNKNOWN,DOCTOR [Primary Care Provider] - Time of Disposition: 10:44
[2024-05-31] MEDS: KETOROLAC 30 MG/ML VIAL (*BKC) IM (08:42)
[2024-05-31 09:12] LABS: Hematocrit 42.4 % (40.0-54.0); Hemoglobin 13.8 g/dL (14.0-18.0); Mean Corpuscular HGB Conc 32.5 g/dL (32-36); Mean Corpuscular Hemoglobin 29.6 pg (27.0-31.0); Mean Platelet Volume 8.6 fl (8.7-11.0); Platelet Count Result 276 K/mm3 (150-420); Red Blood Count 4.66 M/mm3 (4.70-6.10); Red Cell Distribution Width 13.8 % (11.6-14.4); White Blood Count 8.9 K/mm3 (4.8-10.8)
[2024-05-31 09:33] LABS: Alanine Aminotransferase 22 U/L (16-63); Albumin Level 3.3 g/dL (3.4-5.0); Alkaline Phosphatase 129 U/L (46-116); Anion Gap 9 mmol/L (4-12); Aspartate Amino Transferase 21 U/L (15-37); Bilirubin,Total 0.2 mg/dL (0.00-1.00); Blood Urea Nitrogen 13 mg/dL (7-18); Calcium 8.7 mg/dL (8.5-10.1); Carbon Dioxide 29 mmol/L (21-32); Chloride 102 mmol/L (98-108); Estimated CRCL calculation 60 ml/min; Estimated Glomerular Filt Rate > 60; Glucose 109 mg/dL (70-99); Osmolality Calculated 291 mOsm/kg (285-295); Potassium 3.8 mmol/L (3.5-5.1); Sodium 140 mmol/L (136-145); Total Protein 6.9 g/dL (6.4-8.2); Uric Acid 3.4 mg/dL (3.5-7.2)
[2024-05-31 09:46] LABS: CRP 0.7 mg/dL (0.0-0.9)
[2024-05-31 10:27] VITALS: BP 146/104; PULSE 72; RESP 14; TEMP 36.4; O2SAT 99
[2024-05-31 10:33] LABS: Erythrocyte Sedimentation Rate 23 mm/hr (0-20)
[2024-05-31 10:48] VITALS: BP 176/99; PULSE 73; RESP 20; TEMP 37; O2SAT 98
== END 2024-05-31 10:48 | disposition home or self-care (01) ==
PROVIDERS: Emergency Provider Emergency Medicine
DX: M10.9 Gout, unspecified (principal); F17.200 Nicotine dependence, unspecified, uncomplicated
CPT/HCPCS: 11750; 29125; 36415; 73110; 80053; 84550; 85027; 85652; 86140; 96372; 99283; J1885

== ENCOUNTER 2024-10-05 12:23 | Emergency (ER) | payer OTHER, SELFPAY ==
[2024-10-05] VITALS (7 sets, daily range): BP systolic 140–164; BP diastolic 74–123; PULSE 69–87; RESP 16–20; TEMP 36.4–36.6; O2SAT 96–99
--- NOTE | ~2024-10-05 | CT_ITS ---
EXAMINATION: CT brain wo con DATE: 10/05/2024 14:29 INDICATION: Garbled speech, lethargy and confusion TECHNIQUE: Computed tomography (CT) of the head was performed without intravenous contrast. Sagittal and coronal reconstructions were performed. The mA was adjusted according to patient size. Iterative reconstruction technique was employed. The dose-length product was 681.00 mGy-cm. COMPARISON: head CT dated 10/20/2023 FINDINGS: Stable appearance of encephalomalacia with small regions left occipital lobe and moderate-sized regio n in the right muqbeme-qplogzh-jtqjddfii region consistent with chronic infarcts. New small foci of h igh attenuation in the bilateral anterior frontal lobe suspicious for small subarachnoid hemorrhage. No acute intracranial infarction or abnormal extra axial fluid collection. There is moderate scattere d white matter hypoattenuation consistent with chronic small vessel ischemic disease. Mild ex vacuo d ilation of the occipital horn of the right lateral ventricle. Ventricles are otherwise normal and sym metric. No mass/mass effect. Calcified drusen along the posterior lateral right globe. The paranasal sinuses and mastoid air cells are normal. IMPRESSION: 1. New small foci of high attenuation in the bilateral frontal lobes suspicious for subarachnoid hemo rrhage. Dr. Matias discussed these findings with Dr. Childs at 2:45 PM. 2. Chronic encephalomalacia in the left occipital lobe and right temporal parietal region consistent with chronic infarcts. 2. Moderate scattered nonspecific white matter hypoattenuation consistent with chronic small vessel i schemic disease. Reviewed, dictated and finalized at location A. IMPRESSION: 1. New small foci of high attenuation in the bilateral frontal lobes suspicious for subarachnoid hemorrhage. Dr. Matias discussed these findings with Dr. Gates at 2:45 PM. 2. Chronic encephalomalacia in the left occipital lobe and right temporal parie shelbi region consistent with chronic infarcts. 2. Moderate scattered nonspecific white matter hypoattenuation consistent with chronic small vessel ischemic disease.
--- NOTE | ~2024-10-05 | CT_ITS ---
EXAMINATION: CT brain wo con DATE: 10/05/2024 19:20 INDICATION: repeat looking for any changes/stability in CT. . TECHNIQUE: Computed tomography (CT) of the head was performed without intravenous contrast. The mA wa s adjusted according to patient size. Iterative reconstruction technique was employed. The dose-lengt h product was 681.00 mGy-cm. COMPARISON: 10/05/2024 at 2:25 PM. FINDINGS: Stable scattered foci of hyperdensity over the bilateral frontal lobes. No new acute intracranial hem orrhage or extra-axial fluid collection. No hydrocephalus, mass, or herniation. No acute ischemic infarct. Unremarkable dural venous sinus attenuation. No acute osseous abnormality. The aerated spaces are clear. Mild atrophy and moderate chronic white matter change. Atherosclerotic intracranial calcification. Ri ght globe calcified drusen. Right parieto-occipital and left occipital encephalomalacia. IMPRESSION: Stable small volume bilateral frontal lobe subarachnoid hemorrhage. Reviewed, dictated and finalized at location K.
--- OUTSIDE RECORDS SUMMARY | 2024-10-05 12:25 | XMS_ITS | Clinical Summary ---
Author Organization [facility] HealthCare Care Team Providers Care Industrial Sociologist Name Role Phone Taras Ordonez DO Primary Care Provider Allergies No known active allergies Medications acetaminophen 500 mg capsule Take 2 capsules (1,000 mg total) by mouth every 6 (six) hours 4 Active Additional Information Patient not taking.Reported on 08/15/2023 amLODIPine (NORVASC) 10 mg tablet Take 1 tablet (10 mg total) by mouth daily 30 tablet 2 4 Active cloNIDine (CATAPRES) 0.3 mg tablet Take 1 tablet (0.3 mg total) by mouth 3 (three) times a day 90 tablet 2 4 Active docusate sodium (COLACE) 100 mg capsuleIndicati ons:constipatio n Take 1 capsule (100 mg total) by mouth 2 (two) times a day 4 Active haloperidoL (HALDOL) 2 mg tablet Take 1 tablet (2 mg total) by mouth nightly for 14 days 14 tablet 4 Active multivitamin with folic acid 400 mcg tablet Take 1 tablet by mouth daily 30 tablet 11 4 Active Additional Information Patient not taking.Reported on 08/15/2023 valproate (DEPAKENE) syrup 250 mg/5 mL Take 10 mL (500 mg total) by mouth 3 (three) times a day 900 mL [address] (VOLTAREN) 50 mg EC tablet Take 1 tablet (50 mg total) by mouth 2 (two) times a day as needed 0 Active Active Problems Problem Noted Date Diagnosed Date Delirium 07/04/2023 Severe malnutrition 06/26/2023 Intraparenchymal hemorrhage of brain 06/25/2023 Surgical History Surgery Date Site/Laterality Comments ANGIO SELECTIVE INTERNAL CAROTID RIGHT 06/25/2023 Ri ght NG TUBE PLACEMENT 07/04/2023 N/A Social History Tobacco Use Types Packs/Day Years Used Date Smoking Tobacco: Every Day Cigarettes Tobacco Cessation:Ready to Q uit: No; Counseling Given: No PHQ-2 Answer Date Recorded PHQ-2 Total Score (If total score is 3 or more points, staff should administer the PHQ-9) 0 07/03/2023 Personal Safety Answer Date Recorded Have you ever been in or are you currently in a harmful physical or emotional relationship or is someone making you feel afraid or unsafe? 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 Gender Identity Not on file Sexual Orientation Not on file Obstetrics History Last Filed Vital Signs Vital Sign Reading Time Taken Comments Blood Pressure 122/75 03/07/2024 4:40 AM CDT Pulse 87 03/07/2024 4:40 AM CDT Temperature 37.1 C (98.8 F) 03/06/2024 11:09 PM CDT Respiratory Rate 12 03/07/2024 12:45 AM CDT Oxygen Saturation 94% 03/07/2024 4:40 AM CDT Inhaled Oxygen Concentration - - Weight 53 kg (116 lb 13.5 oz) 03/06/2024 11:52 P M CDT Height 167.6 cm (5' 6 ) 08/15/2023 1:21 PM CDT Body Mass Index 18.86 08/15/2023 1:21 PM CDT Plan of Treatment Health Maintenance Due Date Last Done Comments Colon Cancer Screening-Colonoscopy 1965 Hepatitis C Screening 1965 Prostate Cancer Screening-PSA 1965 Hepatitis B Screening 1985 Regular Well Visit/Exam 18-64 1985 DTaP/Tdap/Td Vaccine (1 - Tdap) 12/01/2009 0 Pneumococcal vaccine <65 (2 of 2 - PCV) 03/14/2010 1 Zoster Vaccine (1 of 2) 2017 Covid-19 Vaccine (2 - season) 01/19/202401/2021 Depression Screening 06/25/2024 06/25/2023 Influenza Vaccine (Season Ended) 2025 Insurance CIG[employer] CIG[employer] Advance Directives For more information, please contact: [phone] * Full Code (Latest Code Status on File) Date Activated Date Inactivated Comments 06/25/2023 8:26 AM 07/17/2023 6:01 PM Care Teams Industrial Sociologist Relationship Specialty Start Date End Date Taras Ordonez DO [facility] [address] [place] [id number] PCP - General Family Medicine 02/17/24
--- OUTSIDE RECORDS SUMMARY | 2024-10-05 12:25 | XMS_ITS | Referral Summary ---
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
--- NOTE | 2024-10-05 12:43 | ED.GENADULT ---
HPI - General Adult General Chief complaint: Unspecified Stated complaint: eye irritation Time Seen by Provider: 10/05/24 12:42 History of Present Illness HPI narrative: 59-year-old white male with a history of brain aneurysms and ruptured cerebral hemorrhage June of last year taken to [facility]. he has not seen a physician since then. Brought in by friend saying he has problems with his vision has spider webs seem to drop down his vision and he sees doubles at times this is a chronic problem has been happening since last year. At times he is confused. His father who saw him 2 weeks ago says patient is at his baseline any he is acting no different than he did 2 weeks ago. When asked the friend was the straw that broke the camel's back as far as why they brought the patient into the emergency room that person said because nobody is taking care of him . Patient stated he took used methamphetamine 2 days ago in used marijuana yesterday. Denies any problems eating or drinking voiding or stooling walking or talking swelling lumps or bumps bleeding or bruising dizziness or lightheadedness or any other complaints. He has a very poor historian Related Data Allergies Allergy/AdvReac Type Severity Reaction Status Date / Time No Known Allergies Allergy Verified 10/05/24 12:58 Review of Systems Review of Systems: All systems reviewed & are unremarkable except as noted in HPI and below PMFSH Past Medical History Medical History No pertinent past medical history Surgical History Surgical History No pertinent past surgical history Social History Social History Smoking status: Current every day smoker Alcohol intake: never Substance use: unknown Comments cerebral aneurysms which bled 2023 in June Exam Narrative: White male patient with no apparent distress. Patient is very slow to respond he knows his name he knows he is in the hospital he is not quite sure why they brought him here keeps referring to his son but in no definite way. He does agree with his friend who brought him about his vision being off and having spider webs in his vision at times.. Head normocephalic, atraumatic. Eyes conjunctiva pink sclera nonicteric. Extraocular movements are intact. Ears externally normal. TMs are normal. Oropharynx is clear with moist mucous membranes without exudates. Neck is supple nontender no lymphadenopathy. Back is nontender. Lungs are clear. Heart is regular rate and rhythm without murmurs gallops or rubs. Chest wall nontender. Abdomen is soft and nontender no hepatosplenomegaly or masses no CVA tenderness no abdominal bruits. Extremities no cyanosis clubbing or edema. Skin is warm and dry without rashes or lesions. Neurological patient is alert and [place] x3. He knows his name where he is at he thinks this is October. He knows the year. Motor and sensory grossly intact. Gait is normal. Course Vital Signs Vital signs: Vital Signs Temperature 36.6 C 10/05/24 12:25 Pulse Rate 83 10/05/24 12:25 Respiratory Rate 16 10/05/24 12:25 Blood Pressure 158/123 H 10/05/24 12:25 Pulse Oximetry 96 10/05/24 12:25 Oxygen Delivery Room Air 10/05/24 12:25 Temperature 36.6 C 10/05/24 17:46 Pulse Rate 84 10/05/24 20:40 Respiratory Rate 20 10/05/24 20:40 Blood Pressure 164/74 H 10/05/24 20:40 Pulse Oximetry 97 10/05/24 20:40 Oxygen Delivery Room Air 10/05/24 20:40 Medical Decision Making [facility] Narrative Medical decision making narrative: Patient was placed in Room # 2 History and physical was performed. CT head without contrast showed: 1. New small foci of high attenuation in the bilateral frontal lobes suspicious for subarachnoid hemorrhage. Dr. Matias discussed these findings with Dr. Childs at 2:45 PM. 2. Chronic encephalomalacia in the left occipital lobe and right temporal parietal region consistent with chronic infarcts. 2. Moderate scattered nonspecific white matter hypoattenuation consistent with chronic small vessel ischemic disease. normal CBC, coags unremarkable, rest of CMP is normal, troponin normal magnesium normal lactic acid normal Independent Historian: Sister of ex- , father who states patient has not change in last 2 weeks since he saw him he is at his baseline. External Source Review: June [address] showed cerebral hemorrhage ED visit reviewed patient was transferred to [place] Medications were Reviewed: patient stated he use meth 2 days ago and THC yesterday Independently Interpreted by me: sinus rhythm normal sinus he EKG at a rate of 76 T-wave inversion in aVL biphasic in V2 impression abnormal EKG as independently interpreted by me. Meds, treatment, ED course: Tylenol 650 Social Situation Impacting Patients Care: Shared decision Making: Discussed with at [facility] neuro surgeon she stated these are very small areas and she recommends repeating a CT and 3 hours if there is no changes and they look stable patient can be discharged home and follow-up with the [facility] adult neurosurgery clinic at [phone] discussed with Francisca leary [facility] we would send them his CT scan and they would call us back. This was 3:31 p.m.. no changes so patient will be discharged home to be follow-up with adult neuro surgical clinic as an outpatient DISCHARGE DIAGNOSIS: stable bilateral frontal lobe subarachnoid hemorrhage DISPOSITION: discharge home to follow-up with an outpatient [facility] adult neural surgical clinic CONDITION AT DISCHARGE: stable Vital Signs Vital Signs: Vital Signs Temperature 36.6 C 10/05/24 12:25 Pulse Rate 83 10/05/24 12:25 Respiratory Rate 16 10/05/24 12:25 Blood Pressure 158/123 H 10/05/24 12:25 Pulse Oximetry 96 10/05/24 12:25 Oxygen Delivery Room Air 10/05/24 12:25 Temperature 36.6 C 10/05/24 17:46 Pulse Rate 84 10/05/24 20:40 Respiratory Rate 20 10/05/24 20:40 Blood Pressure 164/74 H 10/05/24 20:40 Pulse Oximetry 97 10/05/24 20:40 Oxygen Delivery Room Air 10/05/24 20:40 Lab Data 10/05/24 14:10 10/05/24 14:10 Labs: Lab Results 10/05/24 10/05/24 10/05/24 Range/Units 13:00 14:10 14:13 WBC 5.1 (4.8-10.8) K/mm3 RBC 4.98 (4.70-6.10) M/mm3 Hgb 14.6 (14.0-18.0) g/dL Hct 44.4 (40.0-54.0) % MCV 89.2 (78.0-102.0) fL MCH 29.3 (27.0-31.0) pg MCHC 32.9 (32-36) g/dL RDW 14.5 H (11.6-14.4) % Plt Count 348 (150-420) K/mm3 MPV 8.8 (8.7-11.0) fl PT 10.0 (9.50-12.1) Seconds INR 0.9 APTT 32.9 H (23.9-30.70) Sec Sodium 136 L (137-145) mmol/L Potassium 3.8 (3.4-5.0) mmol/L Chloride 105 (98-107) mmol/L Carbon Dioxide 25 (22-30) mmol/L Anion Gap 6 (4-12) mmol/L BUN 16 (9-20) mg/dL Creatinine 1.11 (0.7-1.3) mg/dL Estim Creat Clear Calc 56 ml/min Estimated GFR > 60 (59 - ) Glucose 92 (65-110) mg/dL Calculated Osmolality 283 L (285-295) mOsm/kg Lactic Acid 1.0 (0.4-2.0) mmol/L Calcium 9.0 (8.4-10.2) mg/dL Magnesium 2.0 (1.6-2.3) mg/dL Troponin I < 0.012 (0.000-0.034) ng/mL Lipase 136 (23-300) U/L Urine Color Light yellow (Yellow) Urine Appearance Clear (Clear) Urine pH 6.5 (5.0-8.0) Ur Specific [place] 1.010 (1.010-1.020) Urine Protein Negative (Negative) Urine Glucose (UA) Negative (Negative) Urine Ketones Negative (Negative) Ur Blood (Man) Negative (Negative) Urine Nitrate Negative (Negative) Urine Bilirubin Negative (Negative) Urine Urobilinogen 0.2 (0.2-1.0) mg/dL Leukocyte Esterase Rfl Negative (Negative) PEGGY/UL Urine Opiates Screen Negative (Negative) Urine Methadone Screen Negative (Negative) Ur Barbiturates Screen Negative (Negative) Ur Phencyclidine Scrn Negative (Negative) Ur Amphetamine Screen Negative (Negative) U Benzodiazepines Scrn Negative (Negative) Urine Cocaine Screen Negative (Negative) U Cannabinoids Screen Positive A (Negative) Ethyl Alcohol < 10 (<10) mg/dL Influenza A (RT-PCR) Negative (Negative) Influenza B (RT-PCR) Negative (Negative) RSV (RT-PCR) Negative (Negative) SARS-CoV-2 RNA (RT-PCR) Negative (Negative) Discharge Plan Discharge Clinical Impression: Subarachnoid hemorrhage, Mild tetrahydrocannabinol (THC) abuse, Methamphetamine abuse Patient Disposition: Home Condition: Stable Instructions: Subarachnoid Hemorrhage (DC), Polysubstance Use Disorder (ED) Additional Instructions: follow-up with [facility] neurosurgical clinic Patient Language: Welsh Prescriptions: No Action amlodipine 10 mg tablet 10 mg PO DAILY Qty: 90 3RF Follow-up/Referrals: UNKNOWN,DOCTOR [Primary Care Provider] -
--- OUTSIDE RECORDS SUMMARY | 2024-10-05 13:10 | XMS_ITS | Clinical Summary ---
Author Organization 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
--- OUTSIDE RECORDS SUMMARY | 2024-10-05 13:10 | XMS_ITS | Referral Summary ---
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
--- NOTE | 2024-10-05 13:45 | ECG_ITS ---
Test Date: 2024-10-05 14:04:57 Measurements Intervals [place] Rate: 76 P: 79 NC: 144 QRS: 83 QRSD: 94 T: 80 QT: 365 QTc: 411 Interpretive Statements SINUS RHYTHM Compared to ECG 10/20/2023 19:25:14 No significant changes Electronically Signed On 10-06-2024 13:15:49 CDT by Eriberto Rios M.D.
[2024-10-05 13:58] LABS: Add Urine Microscopic? NO; Appearance Urine Clear (Clear); Bilirubin Urine Negative (Negative); Blood Urine Negative (Negative); Color Urine Light Yellow (Yellow); Glucose Urine UA Negative (Negative); Ketones Urine Negative (Negative); Leukocyte Esterase Ur Negative LEU/UL (Negative); Nitrate Urine Negative (Negative); Protein Urine Negative (Negative); Urobilinogen Urine 0.2 mg/dL (0.2-1.0); pH Urine 6.5 (5.0-8.0)
[2024-10-05 14:18] LABS: Amphetamine Screen Urine Negative (Negative); Barbiturate Screen Urine Negative (Negative); Benzodiazepines Screen Urine Negative (Negative); Cannabinoid Screen Urine Positive (Negative); Cocaine Screen Urine Negative (Negative); Methadone Screen Urine Negative (Negative); Opiate Screen Urine Negative (Negative); Phencyclidine Screen Urine Negative (Negative)
[2024-10-05 14:19] LABS: Hematocrit 44.4 % (40.0-54.0); Hemoglobin 14.6 g/dL (14.0-18.0); Mean Corpuscular HGB Conc 32.9 g/dL (32-36); Mean Corpuscular Hemoglobin 29.3 pg (27.0-31.0); Mean Corpuscular Volume 89.2 fL (78.0-102.0); Mean Platelet Volume 8.8 fl (8.7-11.0); Platelet Count Result 348 K/mm3 (150-420); Red Blood Count 4.98 M/mm3 (4.70-6.10); Red Cell Distribution Width 14.5 % (11.6-14.4); White Blood Count 5.1 K/mm3 (4.8-10.8)
[2024-10-05 14:32] LABS: Ethanol < 10 mg/dL (<10)
[2024-10-05 14:36] LABS: INR 0.9; Partial Thromboplastin Time 32.9 Sec (23.9-30.70)
[2024-10-05 14:46] LABS: Chloride 105 mmol/L (98-107); Potassium 3.8 mmol/L (3.4-5.0); Sodium 136 mmol/L (137-145)
[2024-10-05 14:47] LABS: Anion Gap 6 mmol/L (4-12); Blood Urea Nitrogen 16 mg/dL (9-20); Carbon Dioxide 25 mmol/L (22-30); Estimated CRCL calculation 56 ml/min; Estimated Glomerular Filt Rate > 60; Glucose 92 mg/dL (65-110); Osmolality Calculated 283 mOsm/kg (285-295); Troponin I < 0.012 ng/mL (0.000-0.034)
[2024-10-05 14:48] LABS: Lipase 136 U/L (23-300)
[2024-10-05 14:56] LABS: Influenza A QL RT-PCR Negative (Negative); Influenza B QL RT-PCR Negative (Negative); RSV RNA, RT-PCR Negative (Negative); SARS-CoV-2 RNA PCR Negative (Negative)
--- NOTE | 2024-10-05 19:10 | PC.NURSE ---
Report received, pt going at this time for a 2nd repeat CT scan, will await results. Pt resting, call singh at side.
--- NOTE | 2024-10-05 20:30 | PC.NURSE ---
Call back from pts father Hair wanting pt update. Info given and told pts father we will call him back when we have any new info and POC.
--- NOTE | 2024-10-05 20:40 | PC.NURSE ---
Pt is A&O 2 at this time, he will answer questions slowly and follow commands, when asked to get out of bed and walk, he has steady gait and will follow commands. Call back will be placed to [place] for f/u and to speak w/ transfer center again about 2nd repeat CT and POC.
[2024-10-05] MEDS: ACETAMINOPHEN 325 MG TABLET 650 MG PO (21:27)
--- NOTE | 2024-10-06 12:30 | PC.NURSE ---
PRELIMINARY BLOOD CULTURE REPORT; NO GROWTH TO DATE.
--- NOTE | 2024-10-11 13:57 | PC.NURSE ---
FINAL BLOOD CULTURE REPORT; NO GROWTH AFTER 5 DAYS.
== END 2024-10-05 21:50 | disposition home or self-care (01) ==
PROVIDERS: Emergency Provider Emergency Medicine
DX: I60.9 Nontraumatic subarachnoid hemorrhage, unspecified (principal); F15.10 Other stimulant abuse, uncomplicated; F19.10 Other psychoactive substance abuse, uncomplicated; F17.200 Nicotine dependence, unspecified, uncomplicated; Z11.59 Encounter for screening for other viral diseases
CPT/HCPCS: 36415; 70450; 80048; 80307; 81003; 82077; 83605; 83690; 83735; 84484; 85027; 85610; 85730; 87040; 87637; 93005; 99284; A9270

== ENCOUNTER 2025-02-12 12:59 | Emergency (ER) | payer OTHER, SELFPAY ==
--- NOTE | ~2025-02-12 | XR_ITS ---
XR shoulder LT min 2V 02/12/2025 13:52 INDICATION: Left shoulder pain PROCEDURE: 4 views left shoulder COMPARISON: No prior studies for comparison. FINDINGS: Fracture, dislocation or subluxation is not identified. Mild osteoarthritis of the glenohumeral joint. The soft tissues appear within normal limits. No foreign bodies are identified. IMPRESSION: 1: NO ACUTE BONE OR JOINT ABNORMALITY IDENTIFIED. Reviewed, dictated and finalized at location O.
[2025-02-12 13:06] VITALS: BP 139/97; PULSE 80; RESP 16; TEMP 36.4; O2SAT 100
--- OUTSIDE RECORDS SUMMARY | 2025-02-12 13:06 | XMS_ITS | Clinical Summary ---
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 Gender Identity Not on file Sexual Orientation [...] P M CDT Height 167.6 cm (5' 6) 08/15/2023 1:21 PM CDT Body Mass Index [...] 1 Zoster Vaccine (1 of 2) 2017 Depression Screening 06/25/2024 06/25/2023 Covid-19 Vaccine (2 - 2024- season) 01/18/202501/2021 Influenza Vaccine (#1) 2025 Insurance [employer] [employer] Advance Directives For more information, please contact: [phone] * Full Code (Latest Code Status on File) Date Activated Date Inactivated Comments 06/25/2023 8:26 AM 07/17/2023 6:01 PM Care Teams All Round Logger Relationship Specialty Start Date End Date Taras Ordonez DO [address] [place] [id number] PCP - General Family Medicine 02/17/24
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
[2025-02-12] MEDS: KETOROLAC (*BKC) 60 MG/2 ML VIAL IM (13:32)
--- OUTSIDE RECORDS SUMMARY | 2025-02-12 13:34 | XMS_ITS | Clinical Summary ---
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
--- NOTE | 2025-02-12 14:02 | PC.NURSE ---
On 02/12/25, the student, [YAMILE BELLO], provided care and completed [employer] documentation on this patient. I have reviewed the student's documentation and agree with the findings.
[2025-02-12 14:43] VITALS: BP 132/85; PULSE 80; RESP 20; TEMP 36.7; O2SAT 99
== END 2025-02-12 14:44 | disposition home or self-care (01) ==
PROVIDERS: Emergency Provider Emergency Medicine; PCP Family Medicine
DX: S43.402A Unspecified sprain of left shoulder joint, initial encounter (principal); F17.200 Nicotine dependence, unspecified, uncomplicated; W19.XXXA Unspecified fall, initial encounter
CPT/HCPCS: 73030; 96372; 99283; A4565; J1885

== ENCOUNTER 2025-03-11 21:21 | Emergency (ER) | payer OTHER, SELFPAY ==
[2025-03-11 21:25] VITALS: BP 146/101; PULSE 100; RESP 16; TEMP 36.7; O2SAT 100
--- NOTE | 2025-03-11 21:29 | ED_ITS ---
HPI - Wound/Laceration General Chief Complaint: Wound/Laceration Stated Complaint: Nail puncture's in the bottom of both feet Time Seen by Provider: 03/11/25 21:29 Source: patient Mode of arrival: ambulatory Limitations: no limitations History of Present Illness HPI narrative: This is a 60-year-old male with history of hypertension that stepped on a board with nails into his right foot mainly but also complains of left foot as well there is no puncture wounds currently this happened approximately 2 weeks ago there is no redness no drainage no fluctuance has a good brisk pedal pulse bilaterally no fever chills no chest pain or shortness of breath. Onset (ago): week(s) Location: other Extremity Location: Right: foot (Puncture wound) Patient tetanus UTD: No Context: accidental Related Data Allergies Allergy/AdvReac Type Severity Reaction Status Date / Time No Known Allergies Allergy Verified 03/11/25 21:24 Review of Systems Review of Systems: All systems reviewed & are unremarkable except as noted in HPI and below PMFSH Past Medical History Medical History No pertinent past medical history Surgical History Surgical History No pertinent past surgical history Social History Social History Smoking status: Current every day smoker Alcohol intake: never Substance use: unknown Do You Feel Safe in your Home?: Yes Lack of Transportation: No Lack of Food: Never True Current Housing: I Have Housing Concerned About Future Housing: No Difficulty Paying Gas/Electric Bills: No Difficulty Paying for Meds: No Currently Unemployed: No Education: High School Diploma/GED Living arrangements: with family Occupation/Education: unemployed Gender identity (if verbalized by the patient): Male Exam Const: General: healthy appearing and no acute distress Nutritional Appearance: well nourished Orientation/consciousness: patient oriented x3 Limitations: no limitations Resp: Effort & Inspection: normal respiratory effort Auscultation: clear to auscultation bilaterally Cardio: Rate: regular rate Rhythm: regular rhythm GI: GI Palp: Yes Soft to palpation Auscultation: normal bowel sounds Skin: General skin exam: normal color Rashes: no rashes Other: No wounds noted no drainage no redness or erythema looks like there is few callus formations on the plantar surface of bilateral feet Extrem: General: no pedal edema Course Course Emergency Course: Medical decision making narrative: The patient was evaluated via myself in the emergency department. History obtained from the patient was an independent historian and physical exam performed and witnessed by nurse. Patient received 1g IM ceftriaxone and updated for his tetanus. Repeat assessment: Patient doing well on repeat exam with no acute distress Repeat vital stable Patient agrees with discussion after shared medical decision-making and agrees with discharge All questions answered to the patient's satisfaction Follow-up with primary in 3 to 5 days. Critical Care Time Critical Care Time Critical Care Time: No Discharge Plan Discharge Clinical Impression: Puncture wound Patient Disposition: Home Condition: Stable Instructions: Antibiotic Form, Puncture Wound in the Foot (ED) Additional Instructions: Advised patient to take medication as prescribed and follow-up with primary care physician within next 3 to 5 days for further evaluation treatment. Patient Language: Japanese Prescriptions: New levofloxacin 500 mg tablet 500 mg PO DAILY Qty: 7 0RF No Action tramadol 50 mg tablet 50 mg PO Q8H PRN (Reason: pain) Qty: 20 0RF Patient Comments: PT states ran out approx 1 week ago Rx Instructions: 1-2 tabs per dose amlodipine 10 mg tablet See Rx Instructions .ROUTE .COMPLEX Qty: 90 3RF Dose Instruction: 10 MG ORALLY DAILY Rx Instructions: 10 MG ORALLY DAILY Follow-up/Referrals: Taras Ordonez DO [Primary Care Provider, [facility]] Time of Disposition: 21:34
[2025-03-11] MEDS: TETANUS,DIPHTHERIA,AC PERTUSSIS ADULT 0.5 ML (ADACEL) IM (21:40)
[2025-03-11] MEDS: cefTRIAXone 1 GM, LIDOCAINE 1% LOCAL INJ 2.1 ML IM (21:42)
[2025-03-11 22:05] VITALS: BP 152/101; PULSE 87; RESP 18; TEMP 36.9; O2SAT 98
== END 2025-03-11 22:06 | disposition home or self-care (01) ==
PROVIDERS: Emergency Provider Emergency Medicine; PCP Family Medicine
DX: S91.331A Puncture wound without foreign body, right foot, initial encounter (principal); I10 Essential (primary) hypertension; F17.200 Nicotine dependence, unspecified, uncomplicated; Z23 Encounter for immunization; W45.0XXA Nail entering through skin, initial encounter
CPT/HCPCS: 90471; 90715; 96372; 99283; J0696; J2003